=== PATIENT | male | born 1955 ===

== ENCOUNTER 2016-12-02 06:22 | Day surgery (SDC) | payer MEDICARE ==
[2016-12-02 06:58] VITALS: BMI 29.2
--- NOTE | 2016-12-02 07:56 | CP.SDSHP ---
Same Day Surgery H & P - History Proposed Procedure: EGD/colonoscopy Pre-Op Diagnosis: hematemesis, screening - Previous Medical/Surgical History Cardiac: Hypertension - Allergies Allergies: Allergies No Known Allergies Allergy (Verified 12/02/16 06:58) - Physical Exam General Appearance: NAD Vital Signs: Vital Signs 12/02/16 07:09 Temperature 99.3 F Pulse Rate 72 Respiratory 19 Rate Blood Pressure 151/88 H O2 Sat by Pulse 97 Oximetry Mental Status: Alert & Oriented x3 Neuro: WNL Heart: WNL Lungs: WNL GI: WNL - {Optional Preform as Required} Abdomen: WNL - Impression Pt. Evaluated Today:Candidate for Anesthesia & Procedure: Yes - Date & Time Date: 12/02/16 Time: 07:56 Short Stay Discharge - Short Stay Discharge Admitting Diagnosis/Reason for Visit: SCREENING FOR MALIGNANT NEOPLASM OF COLON Disposition: HOME/ ROUTINE
[2016-12-02] MEDS ORDERED: Propofol 10 mg/ml Inj (20 ML) ONE (07:57)
[2016-12-02 09:28] VITALS: TEMP 98.2
[2016-12-02 09:39] VITALS: O2SAT 95
[2016-12-02 09:43] VITALS: BP 139/89; PULSE 72; RESP 21
== END 2016-12-02 10:02 | disposition home or self-care (01) ==
LOC: C.ENDO 06:22
PROVIDERS: ATTEND Internal Medicine Gastroenterology
DX: Z12.11 Encounter for screening for malignant neoplasm of colon (principal); K63.3 Ulcer of intestine; D12.2 Benign neoplasm of ascending colon; D12.5 Benign neoplasm of sigmoid colon; K57.30 Diverticulosis of large intestine without perforation or abscess without bleeding; K64.1 Second degree hemorrhoids; K21.0 Gastro-esophageal reflux disease with esophagitis; K29.50 Unspecified chronic gastritis without bleeding
CPT/HCPCS: 43239; 45380; 88305; J2704